=== PATIENT | female | born 1985 | race African-American/Black ===

== ENCOUNTER 2023-03-03 14:58 | Emergency (ER) | payer SELFPAY | END 2023-03-03 16:15 | disposition home or self-care (01) | LOC: MADERS 14:58 | DX: M67.462 Ganglion, left knee (principal); M94.0 Chondrocostal junction syndrome [Tietze]; M25.522 Pain in left elbow; R29.898 Other symptoms and signs involving the musculoskeletal system | CPT/HCPCS: 99283 ==